=== PATIENT | male | born 1985 | race Caucasian/White ===

== ENCOUNTER 2019-05-18 14:36 | Inpatient (IN) | payer OTHER ==
[~2019-05-18] VITALS: Ht 170.2 cm; Wt 81.6 kg
--- NOTE | 2019-05-18 15:00 | NUR ---
SE RECIBE PTE ALERTA Y ORIENTADO X3 EL CUAL REFIERE VENIR POR DOLOR PELVICO EN LADO ALBINO. PTE REFIERE EL DOLOR COMENZO DESDE HACE 1 SEMANA. SE MIDEN S/V A PTE Y SE COLOCA EN MIN DE ESPERA.
--- NOTE | 2019-05-18 16:31 | NUR ---
EVALUA PTE. SE ORIENTA A PTE SOBRE TX MEDICO. PTE REFIERE COMPRENDER. SE REALIZAN MUESTRAS DE LABORATORIO BAJO MEDIDAS ASEPTICAS. SE ADMINISTRAN MEDICAMENTOS LUNA ORDEN MEDICA. PROCEDIMIENTOS LLEVADOS A CABO POR .
--- NOTE | 2019-05-19 07:30 | NUR ---
SE RCIBE PACIENTE ALERTA EN CAMAM SE OBSERVA CON IVF PATENTE LAINA D EDEMA ,SE TOMAM S/V SIN CAMBIOS PACIENTE REFIERE DOLOR INTERMITENTE ENAREA ABDOMINAL SE MANMTIEIEN OBSERVACION PO RCAMBIOS ENSU CONDCION. EN CONSULTA CON LA DRA. [place].
[2019-05-24] MEDS ORDERED: CIPRO500 MG PO (12:07)
[2019-05-24] MEDS ORDERED: FLAGYL500MG PO (12:08)
== END 2019-05-24 15:26 | disposition home or self-care (01) | DRG 392 ==
LOC: ER 14:36 → MEDJ 05-19 07:48
PROVIDERS: ADMIT Internal Medicine
DX: K57.32 Diverticulitis of large intestine without perforation or abscess without bleeding (principal); R10.32 Left lower quadrant pain

== ENCOUNTER 2020-03-02 08:18 | Inpatient (IN) | payer OTHER ==
[~2020-03-02] VITALS: Ht 172.7 cm; Wt 81.6 kg
[~2020-03-02 08:18] MED LIST: CIPRO500 MG PO; FLAGYL500MG PO
[2020-03-06] MEDS ORDERED: CIPRO500 MG PO (16:48)
[2020-03-06] MEDS ORDERED: PEPCID AC20 MG PO (16:48)
[2020-03-06] MEDS ORDERED: FLAGYL500MG PO (16:48)
[2020-03-06] MEDS ORDERED: INTESTINEX680 M1 PO (16:48)
== END 2020-03-06 17:12 | disposition home or self-care (01) | DRG 392 ==
LOC: ER 08:18 → MEDI 17:18 → MEDJ 17:18 → MEDI 03-06 17:12
PROVIDERS: ADMIT Internal Medicine; ATTEND Internal Medicine
PROC: BW21ZZZ Computerized Tomography (CT Scan) of Abdomen and Pelvis (ICD-10-PCS; principal; 2020-03-02)
DX: K57.32 Diverticulitis of large intestine without perforation or abscess without bleeding (principal)

== ENCOUNTER 2020-03-08 12:24 | Emergency (ER) | payer OTHER ==
[~2020-03-08] VITALS: Ht 172.7 cm; Wt 81.6 kg
[~2020-03-08 12:24] MED LIST changes: +INTESTINEX680 M1 PO; +PEPCID AC20 MG PO
== END 2020-03-08 16:35 ==
LOC: ER 12:24
DX: M79.631 Pain in right forearm (principal); T82.848A Pain due to vascular prosthetic devices, implants and grafts, initial encounter

== ENCOUNTER 2020-03-10 18:35 | Inpatient (IN) | payer OTHER ==
[~2020-03-10] VITALS: Ht 172.7 cm; Wt 81.6 kg
--- NOTE | 2020-03-10 18:56 | NUR ---
PTE ALERTA Y ORIENTADO X3 ACOMPANADO. PTE REFIERE QUE LO DIERON DE FILEMON EL [facility]. EL MISMO INDICA QUE PRESENTA DOLOR EN BRAZO DERECHO DESDE ENTONCES. SE OBSERVA BRAZO DERECHO BEAVER Y CALIENTE AL TACTO. PTE REFIERE QUE SE REALIZO UN SONOGRAMA Y REFIERE QUE LES DIJERON QUE ERA UN COAGULO.
--- NOTE | 2020-03-11 00:10 | NUR ---
PT ALERTA Y ORIENTADO X3 ESFERAS SE LE ORIENTA SOBRE TX Y REFIERE ENTENDER. SE ABHAY MUESTRAS DE ANA Y VENOPUNCION CON TECNICAS ASEPTICAS. SE ADMINISTRAN MEDICAMENTOS E IVFLUIDS ORDENADOS. PT TOLERA TX.
--- NOTE | 2020-03-11 06:46 | NUR ---
PATIENT WAS ORIENTED ABOUT TREATMENT AND UNDERSTOOD. MEDICATION WAS ADMINISTERED. PATIENT TOLERATE NURSING INTERVENTION.
--- NOTE | 2020-03-11 07:12 | NUR ---
SE RECIBE PTE MASCULLINO DE 35 YRS ALERTA CONCIENTE Y TRANQUILO EN LUCINDA CON BARABDA ELEVADA, SE OBSERVA PTE CON IVF'S PATENTE Y LAINA DE EDEDMA . SE MANTIENE EN ESPERA DE ESTUDIO DE DOPPLES DE LA MANO DERECHA LA CUAL SE OBSERVA EDEMATOSA Y HINCHADA. PTE AL MOMENTO LAINA DE DOLOR. SE MANTIENE BAJO OBSERVACION POR CAMBIOS.
--- NOTE | 2020-03-11 12:16 | NUR ---
RE-EVALUADO POR EL DR.COLON HEREDIA SE LE EXTRAEN MUESTRAS DE ANA B/C X3 Y SE ENVIAN AL LABORATORIO. Y SE COMIENZA EN VANCOMYCIN 1,000MG IV STAT. SE MANTIENE EN OBSERVACION PENDIENTE A CONSULTA CON .
--- NOTE | 2020-03-11 16:08 | NUR ---
PTE ALERTA Y ORIENTADO X 3 ESFERAS EN LUCINDA CON BARANDAS ELEVADAS,EN COMPANIA DE FAMILIAR.AREA DE VENOPUNCION PTENTE Y LAINA DE EDEMA CON FLUIDOS DE MANTENIMIENTO BAJANDO SIN DIFICULTDA.PTE NO REFIERE DOLOR EN BRAZO RT AL MOMENTO.PENDIENTE A EVALUACION DE DR ESTRADA.
[2020-03-14] MEDS ORDERED: INTESTINEX680 M1 PO (17:17)
[2020-03-14] MEDS ORDERED: MORGIDOX100 MG PO (17:17)
== END 2020-03-14 17:54 | disposition home or self-care (01) | DRG 603 ==
LOC: ER 18:35 → SEC-K 03-11 18:21 → MEDJ 03-11 18:21
PROVIDERS: ADMIT Internal Medicine; ATTEND Internal Medicine
PROC: B54MZZZ Ultrasonography of Right Upper Extremity Veins (ICD-10-PCS; principal; 2020-03-14)
DX: L03.113 Cellulitis of right upper limb (principal); I80.8 Phlebitis and thrombophlebitis of other sites